=== PATIENT | female | born 1980 | race Two or more races ===

== ENCOUNTER 2017-10-24 16:50 | Emergency (ER) | payer MEDICAID, OTHER ==
[~2017-10-24] VITALS: Ht 154.9 cm; Wt 111.1 kg
[2017-10-24 17:10] VITALS: BP 137/75
[2017-10-24] MEDS ORDERED: PROMETHAZINE HCL 25 MG/ML 1ML IM ONE (17:15)
[2017-10-24] MEDS ORDERED: MEPERIDINE HCL (50 MG/ML) 1 ML VIAL IM ONE (17:15)
== END 2017-10-24 18:28 | disposition home or self-care (01) ==
LOC: ER 16:55
DX: G43.909 Migraine, unspecified, not intractable, without status migrainosus (principal)
CPT/HCPCS: 96372; 99284; J2175; J2550

== ENCOUNTER 2017-10-24 23:01 | Emergency (ER) | payer MEDICAID ==
[~2017-10-24] VITALS: Ht 154.9 cm; Wt 110.2 kg
[2017-10-25] MEDS ORDERED: KETOROLAC TROMETH 60MG/2ML VIAL IM ONE (01:15)
[2017-10-25] MEDS ORDERED: diphenhdrAMINE HCL 50 MG/1 ML VL IM ONE (01:15)
[2017-10-25] MEDS ORDERED: PROMETHAZINE HCL 25 MG/ML 1ML IM ONE (01:15)
[2017-10-25 01:19] VITALS: BP 134/93
[2017-10-25] MEDS ORDERED: HYDROcodone-ACET 10/325MG TAB PO ONE (02:15)
== END 2017-10-25 02:21 | disposition home or self-care (01) ==
LOC: ER 23:02
DX: R51 Headache (principal); I10 Essential (primary) hypertension; E66.01 Morbid (severe) obesity due to excess calories; Z68.42 Body mass index [BMI] 45.0-49.9, adult; Z79.84 Long term (current) use of oral hypoglycemic drugs
CPT/HCPCS: 96372; 99284; J1200; J1885; J2550

== ENCOUNTER 2018-03-04 14:04 | Emergency (ER) | payer MEDICAID ==
[~2018-03-04] VITALS: Ht 154.9 cm; Wt 107.5 kg
[2018-03-04 15:09] VITALS: BP 107/54
[2018-03-04] MEDS ORDERED: LORazepam 0.5 MG TAB PO ONE (16:00)
== END 2018-03-04 16:28 | disposition home or self-care (01) ==
LOC: ER 14:04
DX: F41.9 Anxiety disorder, unspecified (principal); I10 Essential (primary) hypertension; E66.01 Morbid (severe) obesity due to excess calories; Z68.41 Body mass index [BMI] 40.0-44.9, adult